=== PATIENT | female | born 1985 | race Two or more races ===

== ENCOUNTER 2019-04-01 20:12 | Emergency (ER) | payer BC ==
[~2019-04-01] VITALS: Ht 152.4 cm; Wt 76.2 kg
[2019-04-01] MEDS ORDERED: IV NORMAL SALINE 1000ML BAG 1,000 ML IV SCH (20:26)
[2019-04-01 20:36] LABS: BASO # 0.1 x10^3/uL (0.0-0.2); BASO % 1 % (0-3); EOS # 0.4 x10^3/uL (0.0-0.7); EOS % 4 % (0-3); HEMATOCRIT 37.6 % (36.0-47.0); HEMOGLOBIN 12.7 g/dL (12.0-15.5); LYMPH # 5.3 x10^3/uL (1.0-4.8); LYMPH % 60 % (24-48); MEAN CORPUSCULAR HEMOGLOBIN 28 pg (25-35); MEAN CORPUSCULAR HGB CONC 34 g/dL (31-37); MEAN CORPUSCULAR VOLUME 84 fL (79-100); MONO # 0.4 x10^3/uL (0.0-1.1); MONO % 5 % (0-9); NEUT # 2.7 x10^3/uL (1.8-7.7); NEUT % 30 % (31-73); PLATELET COUNT 219 x10^3/uL (140-400); RED BLOOD COUNT 4.45 x10^6/uL (3.50-5.40); RED CELL DISTRIBUTION WIDTH 16.5 % (11.5-14.5); WHITE BLOOD COUNT 8.8 x10^3/uL (4.0-11.0)
--- NOTE | 2019-04-01 20:37 | PHYS DOC ---
Past Medical History Past Medical History: No Pertinent History Adult General Chief Complaint Chief Complaint: CHEST PAIN HPI HPI Patient is a 34 year old female without history of medical problem who presents with complaint of chest pain. Patient complaining of sudden onset of substernal and bilateral chest pressure pain that started about 20 minutes prior to arrival to ER with radiation to the back and associated with intermittent episodes of shortness of breath. Patient stated the pain was 9/10 and she took Tylenol with decrease of pain to 8/10 at arrival to ER. Patient denies nausea, palpitation, fever and chills, cough and congestion, lower extremity pain, history of DVT and PE, history of chest pain, suspect for condition. Patient is with uneventful on March 05 and currently is breast-feeding. Review of Systems Review of Systems Constitutional: Denies fever or chills [] Eyes: Denies change in visual acuity, redness, or eye pain [] HENT: Denies nasal congestion or sore throat [] Respiratory: Denies cough, reports shortness of breath [] Cardiovascular: No additional information not addressed in HPI [] GI: Denies abdominal pain, nausea, vomiting, bloody stools or diarrhea [] : Denies dysuria or hematuria [] Musculoskeletal: Denies back pain or joint pain [] Integument: Denies rash or skin lesions [] Neurologic: Denies headache, focal weakness or sensory changes [] Endocrine: Denies polyuria or polydipsia [] All other systems were reviewed and found to be within normal limits, except as documented in this note. Current Medications Current Medications Current Medications Medications (Trade) Dose Ordered Sig/[facility] Start Time Stop Time Status Last Admin Dose Admin Ketorolac Tromethamine (Toradol 30mg Vial) 30 mg 1X ONCE 04/01/19 21:00 04/01/19 21:01 DC 04/01/19 20:54 30 MG Sodium Chloride 1,000 ml @ 1,000 mls/hr Q1H 04/01/19 20:26 04/01/19 21:25 04/01/19 20:54 1,000 MLS/HR Allergies Allergies Allergies Coded Allergies Type Severity Reaction Last Updated Verified No Known Drug Allergies 04/01/19 No Physical Exam Physical Exam Constitutional: Well developed, well nourished, mild distress, non-toxic appearance. [] HENT: Normocephalic, atraumatic, bilateral external ears normal, oropharynx moist, no oral exudates, nose normal. [] Eyes: PERRLA, EOMI, conjunctiva normal, no discharge. [] Neck: Normal range of motion, no tenderness, supple, no stridor. [] Cardiovascular:Heart rate regular rhythm, no murmur [] Lungs & Thorax: Bilateral breath sounds clear to auscultation [] Abdomen: Bowel sounds normal, soft, no tenderness, no masses, no pulsatile masses. [] Skin: Warm, dry, no erythema, no rash. [] Back: No tenderness, no CVA tenderness. [] Extremities: No tenderness, no cyanosis, no clubbing, ROM intact, no edema. [] Neurologic: Alert and oriented X 3, normal motor function, normal sensory function, no focal deficits noted. [] Psychologic: Affect anxious, judgement normal, mood normal. [] Current Patient Data Vital Signs Vital Signs Date Time Temp Pulse Resp B/P (MAP) Pulse Ox O2 Delivery O2 Flow Rate FiO2 04/01/19 20:30 97.7 92 16 118/73 (88) 97 Room Air 97.7 Lab Values Laboratory Tests Test 04/01/19 20:25 White Blood Count 8.8 x10^3/uL (4.0-11.0) Red Blood Count 4.45 x10^6/uL (3.50-5.40) Hemoglobin 12.7 g/dL (12.0-15.5) Hematocrit 37.6 % (36.0-47.0) Mean Corpuscular Volume 84 fL (79-100) Mean Corpuscular Hemoglobin 28 pg (25-35) Mean Corpuscular Hemoglobin Concent 34 g/dL (31-37) Red Cell Distribution Width 16.5 % (11.5-14.5) H Platelet Count 219 x10^3/uL (140-400) Neutrophils (%) (Auto) 30 % (31-73) L Lymphocytes (%) (Auto) 60 % (24-48) H Monocytes (%) (Auto) 5 % (0-9) Eosinophils (%) (Auto) 4 % (0-3) H Basophils (%) (Auto) 1 % (0-3) Neutrophils # (Auto) 2.7 x10^3/uL (1.8-7.7) Lymphocytes # (Auto) 5.3 x10^3/uL (1.0-4.8) H Monocytes # (Auto) 0.4 x10^3/uL (0.0-1.1) Eosinophils # (Auto) 0.4 x10^3/uL (0.0-0.7) Basophils # (Auto) 0.1 x10^3/uL (0.0-0.2) Platelet Estimate Pending Prothrombin Time 12.9 SEC (11.7-14.0) Prothrombin Time INR 1.0 (0.8-1.1) D-Dimer (Ayse) 0.62 ug/mlFEU (0.00-0.50) H Sodium Level 140 mmol/L (136-145) Potassium Level 3.6 mmol/L (3.5-5.1) Chloride Level 101 mmol/L (98-107) Carbon Dioxide Level 30 mmol/L (21-32) Anion Gap 9 (6-14) Blood Urea Nitrogen 12 mg/dL (7-20) Creatinine 0.8 mg/dL (0.6-1.0) Estimated GFR (Cockcroft-Gault) 81.2 BUN/Creatinine Ratio 15 (6-20) Glucose Level 95 mg/dL (70-99) Calcium Level 9.3 mg/dL (8.5-10.1) Total Bilirubin 0.3 mg/dL (0.2-1.0) Aspartate Amino Transferase (AST) 29 U/L (15-37) Alanine Aminotransferase (ALT) 34 U/L (14-59) Alkaline Phosphatase 98 U/L (46-116) Creatine Kinase 77 U/L (26-192) Troponin I Quantitative < 0.017 ng/mL (0.000-0.055) Total Protein 7.7 g/dL (6.4-8.2) Albumin 3.9 g/dL (3.4-5.0) Albumin/Globulin Ratio 1.0 (1.0-1.7) Lipase 139 U/L (73-393) Laboratory Tests 04/01/19 20:25 Laboratory Tests 04/01/19 20:25 EKG EKG EKG interpreted by me. EKG at 2021 showed normal sinus rhythm at rate of 74, left fourth axis, normal SD and QT intervals, no acute ST and T-wave elevation. Radiology/Procedures Radiology/Procedures Two-view chest x-ray interpreted by me and did not show acute finding. Course & Med Decision Making Course & Med Decision Making Pertinent Labs and Imaging studies reviewed. (See chart for details) Evaluation of patient in ER showed 34-year-old female patient with heart score of 0 complaining of sudden onset of bilateral chest pain started 20 minutes prior to arrival to ER. Patient was anxious at arrival to ER. EKG and labs and chest x-ray was unremarkable except for d-dimer of 0.62 that did not raise a concern for PE. Patient felt better with Toradol and IV fluids. Plan discharge patient home to diagnose of musculoskeletal chest pain. I've spoken with the patient and/or caregivers. I've explained the patient's condition, diagnosis and treatment plan based on information available to me at this time. I've answered the patient's and/or caregivers questions and addressed any concerns. The patient and/or caregivers have a good understanding the patient's diagnosis, condition and treatment plan as can be expected at this point. Vital signs have been stabilized. The patient's condition is stable for discharge from the emergency department. The patient will pursue further outpatient evaluation with her primary care provider or other designated consulting physician as outlined in the discharge instructions. Patient and/or caregivers are agreeable to this plan of care and follow-up instructions have been explained in detail. The patient and/or caregivers have received these instructions in written format and expressed understanding of these discharge instructions. The patient and her caregivers are aware that if any significant change in condition or worsening of symptoms should prompt him to immediately return to this of the closest emergency department. If an emergent department is not readily available I would encourage him to call 911. Nova Disclaimer Nova Disclaimer This electronic medical record was generated, in whole or in part, using a voice recognition dictation system. Departure Departure Impression: Primary Impression: Musculoskeletal chest pain Disposition: HOME, SELF-CARE (at 2113) Condition: IMPROVED Patient Instructions: Chest Wall Pain Additional Instructions: Drink plenty of liquids Follow-up with your primary care physician in 3-5 days Return to ER if not getting better May take [id number] Tylenol as needed for pain Thank you for visiting [facility]. We appreciate you trusting us with your care. If any additional problems come up don't hesitate to return to visit us. Please follow up with your primary care provider so they can plan additional care if needed and know about the problem that you had. If symptoms worsen come back to the Emergency Department. Any concerning symptoms that start such as chest pain, shortness of air, weakness or numbness on one side of the body, running high fevers or any other concerning symptoms return to the ER. The HEART Score for CP Pts HEART Score for Chest Pain: HEART Score for Chest Pain Response (Comments) Value History Slighlty/Non-Suspicious 0 ECG Normal 0 Age < 45 0 Risk Factors No Risk Factors 0 Troponin < Normal Limit 0 Total 0 Risk Factors: Risk Factors: DM, Current or recent (<one month) smoker, HTN, HLP, family history of CAD, obesity. Risk Scores: Score 0 - 3: 2.5% MACE over next 6 weeks - Discharge Home Score 4 - 6: 20.3% MACE over next 6 weeks - Admit for Clinical Observation Score 7 - 10: 72.7% MACE over next 6 weeks - [facility] ABEBE PEREZ MD Apr 01, 2019 20:37
[2019-04-01 20:42] LABS: CALCIUM 9.3 mg/dL (8.5-10.1); CREATININE 0.8 mg/dL (0.6-1.0); GFR 81.2; POTASSIUM 3.6 mmol/L (3.5-5.1)
[2019-04-01 20:43] LABS: PROTHROMBIN TIME PATIENT 12.9 SEC (11.7-14.0)
[2019-04-01 20:46] LABS: D-DIMER 0.62 ug/mlFEU (0.00-0.50)
[2019-04-01 20:48] LABS: ALBUMIN 3.9 g/dL (3.4-5.0); TOTAL BILIRUBIN 0.3 mg/dL (0.2-1.0); TOTAL PROTEIN 7.7 g/dL (6.4-8.2)
--- NOTE | 2019-04-01 20:54 | EKG ---
[facility] [address] [place] [address] Test Date: 2019-04-01 Test Time: 20:22:22 Pat Name: NOE JO Department: Room: Gender: F Upholstery Repairer: : 1985 Requested By: ABEBE PEREZ Order Number: [id number] Reading MD: Measurements Intervals [place] Rate: 74 P: 23 WV: 176 QRS: -13 QRSD: 96 T: 20 QT: 368 QTc: 409 Interpretive Statements SINUS RHYTHM LEFTWARD AXIS QRS(T) CONTOUR ABNORMALITY CONSIDER ANTEROSEPTAL MYOCARDIAL DAMAGE CONSISTENT WITH INFERIOR INFARCT AGE UNDETERMINED ABNORMAL ECG RI6.01 No previous ECG available for comparison
[2019-04-01 21:00] VITALS: BP 108/57
[2019-04-01] MEDS ORDERED: KETOROLAC 30 MG/ML VIAL. IVP ONE (21:00)
[2019-04-01 21:17] LABS: % BASOS 2 % (0-3); % EOS 3 % (0-5); % LYMPHS 64 % (24-48); % MONOS 2 % (0-10); % SEGS 29 % (35-66)
[2019-04-01 21:19] LABS: PLT ESTIMATE ADEQUATE (ADEQUATE)
--- NOTE | 2019-04-01 22:21 | RAD ---
EXAM: CHEST 2 VIEWS. HISTORY: Chest pain. COMPARISON: None. FINDINGS: Frontal and lateral views of the chest are obtained. There are no confluent infiltrates. There is no pneumothorax or pleural effusion. The heart is not enlarged. IMPRESSION: 1. No confluent infiltrates. Electronically signed by: Rahul Landis MD (04/01/2019 10:19 PM) [id number]
== END 2019-04-01 21:55 | disposition home or self-care (01) ==
LOC: ER 20:12
DX: O90.89 Other complications of the puerperium, not elsewhere classified (principal); R07.89 Other chest pain; R06.02 Shortness of breath; Z98.890 Other specified postprocedural states
CPT/HCPCS: 36415; 71046; 80053; 82550; 83690; 84484; 85007; 85025; 85379; 85610; 93005; 96374; 99285; J1885; J7030